=== PATIENT | female | born 2000 | race Caucasian/White ===

== ENCOUNTER 2021-06-08 07:15 | Inpatient (IN) | payer OTHER ==
[2021-06-08 09:03] VITALS: BMI 30.6
[2021-06-08 09:08] LABS: BASO % 0.4 % (0-2.0); HEMATOCRIT 35.8 % (32.4-45.2); HEMOGLOBIN 12.3 GM/dL (10.7-15.3); MCH 27.7 pg (25.7-33.7); MCHC 34.3 g/dl (32.0-36.0); MEAN CELL VOLUME 80.8 fl (80-96); MEAN PLT VOLUME 8.2 fl (7.5-11.1); MONO % 5.5 % (3.8-10.2); NEUT % 73.1 % (42.8-82.8); PLATELET COUNT 239 10^3/uL (134-434); RBC 4.43 M/mm3 (3.60-5.2); RDW 16.6 % (11.6-15.6); WHITE BLOOD COUNT 10.5 K/mm3 (4.0-10.0)
[2021-06-08 09:18] LABS: INR 0.95 (0.83-1.09); PROTHROMBIN TIME (PATIENT) 11.5 SEC (9.7-13.0)
[2021-06-08 09:20] LABS: ACTIVATED PTT 27.3 SECONDS (25.2-36.5)
[2021-06-08 09:21] LABS: BLOOD UREA NITROGEN 9.2 mg/dL (7-18); CALCIUM 8.4 mg/dL (8.5-10.1)
[2021-06-08 09:25] LABS: CREATININE 0.5 mg/dL (0.55-1.3)
[2021-06-08] MEDS ORDERED: CITRIC ACID/SODIUM CITRATE 30 ML UNIT-DOSE CUP PO ONE (09:52)
[2021-06-08] MEDS ORDERED: DINOPROSTONE 10 MG VAGINAL SUPPOSITORY VG ONE (09:54)
[2021-06-08] MEDS ORDERED: AMPICILLIN - 2 GM in SODIUM CHLORIDE 100 ML IVPB ONE (10:07)
[2021-06-08] MEDS ORDERED: PROMETHAZINE HCL 25 MG/1 ML VIAL IM PRN (10:08)
[2021-06-08] MEDS: AMPICILLIN - 1 GM in SODIUM CHLORIDE 100 ML IVPB SCH ×3 (14:24→22:20)
[2021-06-08] MEDS: ELECTROLYTE-148 SOLN 1,000 ML IV SCH (17:45)
[2021-06-08] MEDS ORDERED: AMPICILLIN SODIUM 2 GM VIAL ONE (17:48)
[2021-06-08] MEDS ORDERED: OXYTOCIN 30 UNITS in 0.9% NS 30 UNIT/500 ML INFUS.BAG IVPB ONE (21:15)
[2021-06-08] MEDS: OXYTOCIN 30 UNITS in 0.9% NS 30 UNIT/500 ML INFUS.BAG IVPB SCH (21:20)
[2021-06-08] MEDS ORDERED: BUTORPHANOL TARTRATE 2 MG/ML VIAL ONE (21:50)
[2021-06-08] MEDS ORDERED: PROMETHAZINE HCL 25 MG/1 ML VIAL ONE (21:50)
[2021-06-08] MEDS: BUTORPHANOL TARTRATE 1 MG/ML VIAL IVPB SCH (21:55)
[2021-06-08] MEDS ORDERED: AMPICILLIN SODIUM 1 GM VIAL ONE (22:16)
[2021-06-09] MEDS ORDERED: AMPICILLIN SODIUM 1 GM VIAL ONE ×3 (01:59→10:38)
[2021-06-09] MEDS: AMPICILLIN - 1 GM in SODIUM CHLORIDE 100 ML IVPB SCH ×3 (02:00→10:43)
[2021-06-09] MEDS ORDERED: PCA PUMP NR ONE ×2 (02:22→07:34)
[2021-06-09] MEDS: ELECTROLYTE-148 SOLN 1,000 ML IV SCH ×2 (02:25→04:40)
[2021-06-09] MEDS ORDERED: FENTANYL/BUPIVACAINE/NS/PF - PCEA - 50 ML DISP.SYRIN EP ONE ×2 (02:30→07:35)
[2021-06-09] MEDS ORDERED: NALOXONE HCL 0.4 MG/ML VIAL IVPUSH PRN (02:34)
[2021-06-09] MEDS ORDERED: BUPIVACAINE HCL/PF 0.25% (2.5MG/ML) 10 ML VIAL ONE (02:36)
[2021-06-09] MEDS: FENTANYL/BUPIVACAINE/NS/PF - PCEA - 50 ML DISP.SYRIN EP SCH (02:55)
[2021-06-09] MEDS ORDERED: ePHEDrine SULFATE 50 MG/1 ML AMPULE ONE (03:01)
[2021-06-09] MEDS ORDERED: LIDOCAINE HCL 1% PRESERVATIVE FREE - 30ML VIAL ONE (13:39)
[2021-06-09] MEDS ORDERED: OXYTOCIN 20 UNITS in 0.9% NS 20 UNIT/1,000 ML INFUS.BAG IV ONE (14:38)
[2021-06-09 15:03] LABS: CORD BASE EXCESS -8.3 mmol/L (0-2); CORD HCO3 19.3 mmHg (20-29); CORD PCO2 46.6 mmHg (30-78); CORD pH 7.234 (7.14-7.44)
[2021-06-09 15:04] LABS: CORD PCO2 57.9 mmHg (30-78); CORD pH 7.133 (7.14-7.44)
[2021-06-09] MEDS ORDERED: ACETAMINOPHEN 325 MG TABLET (FP) PO PRN (22:59)
[2021-06-09] MEDS ORDERED: IBUPROFEN 600 MG TABLET (FP) PO PRN (22:59)
[2021-06-10] MEDS: ELECTROLYTE-148 SOLN 1,000 ML IV SCH ×2 (12:00→15:04)
[2021-06-10] MEDS: FENTANYL/BUPIVACAINE/NS/PF - PCEA - 50 ML DISP.SYRIN EP SCH (12:08)
[2021-06-10] MEDS: BUTORPHANOL TARTRATE 1 MG/ML VIAL IVPB SCH ×3 (15:03→20:27)
[2021-06-10] MEDS: OXYTOCIN 30 UNITS in 0.9% NS 30 UNIT/500 ML INFUS.BAG IVPB SCH (15:05)
[2021-06-11 09:27] VITALS: BP 118/71; PULSE 80; TEMP 98.5
== END 2021-06-11 11:30 | disposition home or self-care (01) | DRG 560 ==
LOC: JLDR 07:15 → J3W 06-09 15:45
PROVIDERS: ADMIT Obstetrics & Gynecology; ATTEND Obstetrics & Gynecology
PROC: 10E0XZZ Delivery of Products of Conception, External Approach (ICD-10-PCS; principal; 2021-06-09)
PROC: 0W8NXZZ Division of Female Perineum, External Approach (ICD-10-PCS; 2021-06-09)
DX: O48.0 Post-term pregnancy (principal); O99.824 Streptococcus B carrier state complicating childbirth; O69.81X0 Labor and delivery complicated by cord around neck, without compression, not applicable or unspecified; Z37.0 Single live birth; Z3A.40 40 weeks gestation of pregnancy
CPT/HCPCS: 36415; 36600; 59409; 80048; 82803; 85025; 85610; 85730; 86780; 86850; 86900; 86901; C9803; U0003; U0005

== ENCOUNTER 2022-04-20 21:35 | Inpatient (IN) | payer OTHER ==
[2022-04-20] MEDS ORDERED: OXYTOCIN 20 UNITS in 0.9% NS 20 UNIT/1,000 ML INFUS.BAG IV ONE ×2 (21:52→23:51)
[2022-04-20] MEDS ORDERED: LIDOCAINE HCL 1% PRESERVATIVE FREE - 30ML VIAL ONE (21:52)
[2022-04-20 22:08] VITALS: BMI 29.9
[2022-04-20 22:12] LABS: INR 0.99 (0.83-1.09); PROTHROMBIN TIME (PATIENT) 11.4 SEC (9.7-13.0)
[2022-04-20 22:15] LABS: ACTIVATED PTT 27.7 SECONDS (25.2-36.5)
[2022-04-20 22:18] LABS: BASO % 0.3 % (0-2.0); EOS % 0.3 % (0-4.5); HEMATOCRIT 33.6 % (32.4-45.2); LYMPH % 14.3 % (8-40); MCH 24.8 pg (25.7-33.7); MCHC 32.7 g/dl (32.0-36.0); MEAN CELL VOLUME 75.8 fl (80-96); MEAN PLT VOLUME 8.1 fl (7.5-11.1); MONO % 4.1 % (3.8-10.2); PLATELET COUNT 305 10^3/uL (134-434); RBC 4.43 M/mm3 (3.60-5.2); RDW 15.7 % (11.6-15.6); WHITE BLOOD COUNT 12.5 K/mm3 (4.0-10.0)
[2022-04-20] MEDS ORDERED: CITRIC ACID/SODIUM CITRATE 30 ML UNIT-DOSE CUP PO ONE (22:22)
[2022-04-20 22:26] LABS: CALCIUM 8.6 mg/dL (8.5-10.1)
[2022-04-20] MEDS ORDERED: SUCCINYLCHOLINE CHLORIDE 200 MG/10 ML SYRINGE ONE (22:28)
[2022-04-20] MEDS ORDERED: PROPOFOL 20 ML ONE (22:28)
[2022-04-20 22:30] LABS: CREATININE 0.5 mg/dL (0.55-1.3)
[2022-04-20] MEDS ORDERED: ELECTROLYTE-148 SOLN 1,000 ML IV SCH (22:30)
[2022-04-20] MEDS ORDERED: IBUPROFEN 800 MG/8 ML IJ IVPB PRN (23:06)
[2022-04-20] MEDS ORDERED: BENZOCAINE 20% 57 GM BOTTLE TP PRN (23:06)
[2022-04-20] MEDS ORDERED: BENZOCAINE 28 GM HEMORRHOIDAL OINTMENT TP PRN (23:06)
[2022-04-20] MEDS ORDERED: METHYLERGONOVINE MALEATE 0.2 MG/1 ML AMP IM PRN (23:06)
[2022-04-20] MEDS ORDERED: SENNOSIDES/DOCUSATE COMBO (SENNA PLUS) TABLET (UD) PO PRN (23:06)
[2022-04-20] MEDS ORDERED: ACETAMINOPHEN 325 MG TABLET (FP) PO PRN (23:06)
[2022-04-20] MEDS: OXYTOCIN 20 UNITS in 0.9% NS 20 UNIT/1,000 ML INFUS.BAG IV SCH (23:15)
[2022-04-20] MEDS ORDERED: ONDANSETRON 4 MG/2 ML VIAL IVPUSH PRN (23:21)
[2022-04-20] MEDS ORDERED: morphine SULFATE/PF 1 MG/2 ML (2cc Syringe - QUVA) EP ONE (23:21)
[2022-04-20] MEDS ORDERED: ONDANSETRON 4 MG/2 ML VIAL ONE (23:51)
[2022-04-21] MEDS: OXYTOCIN 20 UNITS in 0.9% NS 20 UNIT/1,000 ML INFUS.BAG IV SCH (01:40)
[2022-04-21 09:23] LABS: LYMPH % 8.4 % (8-40); MCH 24.2 pg (25.7-33.7); MEAN CELL VOLUME 77.9 fl (80-96); MONO % 3.8 % (3.8-10.2); NEUT % 87.8 % (42.8-82.8); PLATELET COUNT 331 10^3/uL (134-434); RDW 15.5 % (11.6-15.6); WHITE BLOOD COUNT 23.9 K/mm3 (4.0-10.0)
[2022-04-21 09:53] LABS: HEMOGLOBIN 6.5 GM/dL (10.7-15.3)
[2022-04-21] MEDS ORDERED: FLU VACC QS2021-22(6MOS UP)/PF 60 MCG/0.5 ML SYRINGE IM ONE (10:00)
[2022-04-21] MEDS ORDERED: DIPHTH,PERTUSS(ACELL),TET 0.5 ML DISP.SYRIN IM ONE (10:00)
[2022-04-21] MEDS: FERROUS SO4 325 MG TABLET (FP) PO SCH ×2 (10:40→22:09)
[2022-04-21] MEDS: PRENATAL VITAMINS W/ FOLIC ACID TABLET (FP) PO SCH (10:40)
[2022-04-21] MEDS ORDERED: oxyCODONE HCL 5 MG TABLET PO PRN (11:06)
[2022-04-21 14:29] LABS: OVALOCYTE 2+
[2022-04-21 14:30] LABS: PLATELET ESTIMATE ADEQUATE
[2022-04-21] MEDS ORDERED: BISACODYL 10 MG SUPP.RECT RC PRN (23:06)
[2022-04-22] MEDS: SIMETHICONE 80 MG TAB.CHEW (FP) PO PRN ×2 (00:53→21:03)
[2022-04-22] MEDS: IBUPROFEN 600 MG TABLET (FP) PO PRN ×3 (00:53→21:03)
[2022-04-22] MEDS: OXYTOCIN 20 UNITS in 0.9% NS 20 UNIT/1,000 ML INFUS.BAG IV SCH (07:03)
[2022-04-22 08:33] LABS: BASO % 0.3 % (0-2.0); EOS % 0.1 % (0-4.5); HEMATOCRIT 19.5 % (32.4-45.2); LYMPH % 12.3 % (8-40); MCH 27.7 pg (25.7-33.7); MCHC 33.9 g/dl (32.0-36.0); MEAN CELL VOLUME 81.9 fl (80-96); MONO % 8.2 % (3.8-10.2); NEUT % 79.1 % (42.8-82.8); RBC 2.38 M/mm3 (3.60-5.2); RDW 18.2 % (11.6-15.6); WHITE BLOOD COUNT 13.3 K/mm3 (4.0-10.0)
[2022-04-22 08:38] LABS: HEMOGLOBIN 6.6 GM/dL (10.7-15.3)
[2022-04-22] MEDS: PRENATAL VITAMINS W/ FOLIC ACID TABLET (FP) PO SCH (09:42)
[2022-04-22] MEDS: FERROUS SO4 325 MG TABLET (FP) PO SCH ×2 (09:42→21:03)
[2022-04-22 10:21] LABS: PLATELET ESTIMATE SLT PLT CLUMPING
[2022-04-23 08:36] VITALS: BP 112/73; PULSE 78; TEMP 97.8
[2022-04-23 08:39] LABS: BASO % 0.3 % (0-2.0); EOS % 0.7 % (0-4.5); HEMATOCRIT 24.6 % (32.4-45.2); HEMOGLOBIN 8.3 GM/dL (10.7-15.3); LYMPH % 18.7 % (8-40); MCH 28.2 pg (25.7-33.7); MCHC 33.9 g/dl (32.0-36.0); MEAN CELL VOLUME 83.2 fl (80-96); MEAN PLT VOLUME 7.6 fl (7.5-11.1); NEUT % 73.3 % (42.8-82.8); PLATELET COUNT 199 10^3/uL (134-434); RBC 2.95 M/mm3 (3.60-5.2); RDW 16.8 % (11.6-15.6); WHITE BLOOD COUNT 12.3 K/mm3 (4.0-10.0)
[2022-04-23] MEDS: PRENATAL VITAMINS W/ FOLIC ACID TABLET (FP) PO SCH (09:49)
[2022-04-23] MEDS: FERROUS SO4 325 MG TABLET (FP) PO SCH (09:49)
== END 2022-04-23 13:40 | disposition home or self-care (01) | DRG 540 ==
LOC: JLDR 21:35 → J3W 04-21 01:55
PROVIDERS: ADMIT Obstetrics & Gynecology; ATTEND Obstetrics & Gynecology
PROC: 10D00Z1 Extraction of Products of Conception, Low, Open Approach (ICD-10-PCS; principal; 2022-04-20)
PROC: 30233N1 Transfusion of Nonautologous Red Blood Cells into Peripheral Vein, Percutaneous Approach (ICD-10-PCS; 2022-04-22)
DX: O32.8XX0 Maternal care for other malpresentation of fetus, not applicable or unspecified (principal); O42.02 Full-term premature rupture of membranes, onset of labor within 24 hours of rupture; O69.1XX0 Labor and delivery complicated by cord around neck, with compression, not applicable or unspecified; O90.81 Anemia of the puerperium; D64.9 Anemia, unspecified; Z3A.37 37 weeks gestation of pregnancy; Z37.0 Single live birth
CPT/HCPCS: 36415; 36430; 80048; 85025; 85610; 85730; 86780; 86850; 86900; 86901; 86922; 88307-TC; 90686; 90715; C9803-CS; G0008; P9058; U0003; U0005